=== PATIENT | male | born 1940 | race Caucasian/White ===

== ENCOUNTER → 2017-06-19 | Day surgery (SDC) | payer MEDICARE ==
[2017-06-15 15:36] LABS: BASOPHILS % 0.5 % (0.0-1.0); EOSINOPHILS # (AUTO) 0.4 (0.0-0.4); EOSINOPHILS % 4.6 % (0.0-6.0); HEMATOCRIT 49.2 % (38.2-49.6); HEMOGLOBIN 16.3 g/dL (14.0-18.0); LYMPHOCYTES # (AUTO) 1.7 (1.0-3.2); LYMPHOCYTES % 21.7 % (18.0-39.1); MEAN CORPUSCULAR HEMOGLOBIN 29.5 pg (28-32); MEAN CORPUSCULAR HGB CONC 33.1 g/dL (31-35); MEAN CORPUSCULAR VOLUME 89.1 fL (81-99); MONOCYTES # (AUTO) 0.6 (0.2-0.8); MONOCYTES % 8.1 % (4.4-11.3); NEUTROPHILS % 64.7 % (38.7-80.0); PLATELET COUNT 259 x10e3/uL (140-360); RED BLOOD COUNT 5.52 x10e6/uL (4.3-5.7)
--- NOTE | 2017-06-15 16:16 | Diagnostic Imaging Report ---
PROCEDURE: Frontal and lateral views of the chest. COMPARISON: None. INDICATIONS: PREOP FINDINGS: Lines/tubes: None. Lungs: The lungs are well inflated and clear. There is no evidence of pneumonia or pulmonary edema. Pleura: There is no pleural effusion or pneumothorax. Heart and mediastinum: The heart and the mediastinum are normal. Bones: No acute bony abnormality. Degenerative changes of the thoracic spine. Upper abdomen: No free air under the diaphragm. IMPRESSION: No acute cardiopulmonary disease. Dictated by: Ronald Potter M.D. on 06/15/2017 at 16:17 Electronically approved by: Ronald Potter M.D. on 06/15/2017 at 16:17
[~2017-06-19] MED LIST: A THRU Z SELEC1 EAC2 PO; CEFAZOLIN SOD 1 GM VIAL ONE; CELEBREX100 MG PO; FENTANYL CITRATE/PF 100MCG/2 ML INJ ONE; LIDOCAINE HCL 0.5% LOCAL INJ 50 ML VIAL INJ ONE; LIDOCAINE HCL 2% LOCAL INJ 5 ML SDV VIAL INJ ONE; MIDAZOLAM HCL 2 MG/2 ML VIAL ONE; PROPOFOL IV EMULSION 10 MG/ML 20 ML VIAL ONE; RED YEAST RICE600 M1 PO; VITAMIN B-121000 MC1 PO; VITAMIN C500 M1 PO; VITAMIN D32000 UNIT PO; VITAMIN E400 UNIT PO
--- OUTSIDE RECORDS SUMMARY | 2017-06-19 06:28 | XMS REPORT ---
Author Author [facility] Address Unknown Phone Unavailable Care Team Providers Care Transmission Systems Operator Name Role Phone RUDY ARREAGA Unavailable Unavailable Problems This patient has no known problems. Allergies, Adverse Reactions, Alerts This patient has no known allergies or adverse reactions. Medications This patient has no known medications. Results Test Description Test Time Test Comments Text Results Atomic Results Result Comments CHEST 2 VIEWS [place] [address] Patient Name: SARTHAK SHAIKH MR #: [id number] : 1940 Age/Sex: 76/M Req # : [id number] Adm Physician: Ordered by: MILEY NELSON MD Report #: [id number] Location: OR Room/Bed: Procedure: [id number] DX/CHEST 2 VIEWS Exam Date: 06/15/17 Exam Time: 1505 REPORT STATUS: Signed PROCEDURE: Frontal and lateral views of the chest. COMPARISON: None. INDICATIONS: PREOP FINDINGS : Lines/tubes: None. Lungs: The lungs are well inflated and clear. There is no evidence of pneumonia or pulmonary edema. Pleura: There is no pleural effusion or pneumothorax. Heart and mediastinum: The heart and the mediastinum are normal. Bones: No acute bony abnormality. Degenerative changes of the thoracic spine. Upper abdomen: No free air under the diaphragm. IMPRESSION: No acute cardiopulmonary disease. Dictated by: Ronald Weber M.D. on 06/15/2017 at 16:17 Electronically approved by: Ronald Weber M.D. on 06/15/2017 at 16:17 Dictated By: RONALD WEBER MD [id number] Transcribed By: EFREM on 06/15/17 1617 COPY TO: MILEY NELSON III
--- NOTE | 2017-06-19 11:05 | Operative Report ---
DATE OF PROCEDURE: June 19, 2017 DIE EQUIPMENT OPERATOR: Aristides Infante PA-C The patient was brought to the operating room for induction of anesthesia. Throughout this case, my PA's assistance was necessary for retraction of soft tissue and positioning of the extremity. This allows for efficient and technically successful execution of the operation and is considered medically necessary. PREOPERATIVE DIAGNOSIS: Left carpal tunnel syndrome. POSTOPERATIVE DIAGNOSIS: Left carpal tunnel syndrome. PROCEDURE: Left endoscopic carpal tunnel release. INDICATIONS: The patient is a 76-year-old gentleman who has clinic signs and symptoms consistent with left carpal tunnel syndrome. The findings and options have been discussed. The patient is highly motivated to proceed with definitive intervention. The risks and benefits have been explained. He states he understands and wishes to proceed. DESCRIPTION OF PROCEDURE: The patient was brought to the operating room and given a Doug block. He has a remote family history of malignant hyperthermia. Once the [place] block was set up, his left upper extremity was prepped and draped in a sterile manner. A preoperative time out was performed. An incision was made over the flexion crease of the left wrist. The palmaris longus was retracted to the radial side of the wound. The flexor retinaculum was elevated and incised with a pair of tenotomy scissors. An elevator was used to tease the tenosynovium off of the undersurface of the transverse carpal ligament. Dilators were placed and the hook of the hamate was palpated. The Micro-Aire endoscope was then placed into the carpal tunnel. The undersurface of the transverse carpal ligament could be cleanly visualized without any evidence of soft tissue interposition. The knife was deployed and the ligament was cut from distal to proximal. A full-thickness cut was noted. The proximal retinaculum was incised under direct visualization with a pair of Metzenbaum scissors. The incision was then closed with 2 interrupted nylon stitches. A sterile bandage was applied. The Doug bloc was gradually deflated. He was transported to the recovery room in stable condition. There was no blood loss. All needle and sponge counts were correct. Job#: [id number]
== END | disposition home or self-care (01) ==
LOC: OR 06:26
PROVIDERS: ATTEND Specialist
DX: G56.02 Carpal tunnel syndrome, left upper limb (principal); M06.9 Rheumatoid arthritis, unspecified; J45.909 Unspecified asthma, uncomplicated; Z01.810 Encounter for preprocedural cardiovascular examination; Z01.812 Encounter for preprocedural laboratory examination; Z01.818 Encounter for other preprocedural examination
CPT/HCPCS: 29848; 36415; 71046; 85025; 93005; J0690; J2001 ×2; J2250

== ENCOUNTER 2017-07-19 19:16 | Emergency (ER) | payer MEDICARE ==
[~2017-07-19] VITALS: Ht 167.6 cm; Wt 83.9 kg
[~2017-07-19 19:16] MED LIST changes: -CEFAZOLIN SOD 1 GM VIAL ONE; -FENTANYL CITRATE/PF 100MCG/2 ML INJ ONE; -LIDOCAINE HCL 0.5% LOCAL INJ 50 ML VIAL INJ ONE; -LIDOCAINE HCL 2% LOCAL INJ 5 ML SDV VIAL INJ ONE; -MIDAZOLAM HCL 2 MG/2 ML VIAL ONE; -PROPOFOL IV EMULSION 10 MG/ML 20 ML VIAL ONE
[2017-07-19] MEDS ORDERED: DEXAMETHASONE SOD PHOS 10 MG/1 ML VIAL INJ ONE (20:00)
[2017-07-19 20:05] LABS: BASOPHILS # (AUTO) 0.1 (0.0-0.1); BASOPHILS % 0.4 % (0.0-1.0); EOSINOPHILS # (AUTO) 2.4 (0.0-0.4); EOSINOPHILS % 13.3 % (0.0-6.0); HEMATOCRIT 44.1 % (38.2-49.6); HEMOGLOBIN 15.4 g/dL (14.0-18.0); LYMPHOCYTES # (AUTO) 1.4 (1.0-3.2); LYMPHOCYTES % 7.9 % (18.0-39.1); MEAN CORPUSCULAR HEMOGLOBIN 29.8 pg (28-32); MEAN CORPUSCULAR HGB CONC 34.9 g/dL (31-35); MEAN CORPUSCULAR VOLUME 85.5 fL (81-99); MONOCYTES # (AUTO) 1.3 (0.2-0.8); MONOCYTES % 7.4 % (4.4-11.3); NEUTROPHILS # (AUTO) 12.6 (2.1-6.9); NEUTROPHILS % 70.4 % (38.7-80.0); PLATELET COUNT 287 x10e3/uL (140-360); RED BLOOD COUNT 5.16 x10e6/uL (4.3-5.7); RED CELL DISTRIBUTION WIDTH 12.7 % (11.7-14.4)
[2017-07-19 20:14] LABS: INR 1.19; PROTHROMBIN TIME 14.2 seconds (11.9-14.5)
[2017-07-19 20:15] LABS: PARTIAL THROMBOPLASTIN TIME 31.9 seconds (23.8-35.5)
[2017-07-19 20:21] LABS: ALANINE AMINOTRANSFERASE 18 IU/L (0-55); ALBUMIN 3.6 g/dL (3.5-5.0); ALBUMIN/GLOBULIN RATIO 0.8 (0.8-2.0); ALKALINE PHOSPHATASE 54 IU/L (40-150); ANION GAP 15.1 mmol/L (8-16); BLOOD UREA NITROGEN 9 mg/dL (7-26); BUN/CREATININE RATIO 11 (6-25); CARBON DIOXIDE 23 mmol/L (22-29); CHLORIDE 99 mmol/L (98-107); EST GLOMERULAR FILTRATION RATE > 60 ML/MIN (60-); GLUCOSE 124 mg/dL (74-118); POTASSIUM 4.1 mmol/L (3.5-5.1); SODIUM 133 mmol/L (136-145)
[2017-07-19 21:31] LABS: EOSINOPHILS % (MANUAL) 11 % (0-7); HYPOCHROMASIA SLIGHT; LYMPHOCYTES % (MANUAL) 6 % (19-48); MONOCYTES % (MANUAL) 5 % (3.4-9.0); NEUTROPHILS % (MANUAL) 78 % (40-74); PLATELET ESTIMATE ADEQUATE; RBC MORPHOLOGY COMMENT NORMAL
--- NOTE | 2017-07-19 22:01 | Diagnostic Imaging Report ---
EXAMINATION: CHEST 2 VIEWS INDICATION: Rash on feet, chest pain COMPARISON: 06/15/2017 FINDINGS: TUBES and LINES: None. LUNGS: Lungs are well inflated. Lungs are clear. There is no evidence of pneumonia or pulmonary edema. PLEURA: No pleural effusion or pneumothorax. HEART AND MEDIASTINUM: The cardiomediastinal silhouette is unremarkable. BONES AND SOFT TISSUES: No acute osseous lesion. Soft tissues are unremarkable. UPPER ABDOMEN: No free air under the diaphragm. IMPRESSION: No acute thoracic abnormality. Signed by: Dr. Reid Hutson M.D. on 07/19/2017 9:58 PM
== END 2017-07-19 23:15 | disposition home or self-care (01) ==
LOC: ER 19:16
DX: L51.9 Erythema multiforme, unspecified (principal)
CPT/HCPCS: 36415; 71046; 80053; 85025; 85610; 85651; 85730; 86140; 99284; J1100

== ENCOUNTER 2019-03-17 05:17 | Observation (INO) | payer MEDICARE ==
--- NOTE | 2019-03-10 11:54 | Diagnostic Imaging Report ---
EXAMINATION: CHEST 2 VIEWS INDICATION: Pre-operative COMPARISON: None FINDINGS: LINES/TUBES:None LUNGS:The lungs are well-inflated. No focal consolidation or pulmonary edema. PLEURA:No pleural effusion or pneumothorax. MEDIASTINUM:The cardiomediastinal silhouette appears normal in size and shape. Atherosclerotic calcifications of the thoracic aorta. BONES/SOFT TISSUES:No acute osseous injury. Mild degenerative changes of the visualized spine. ABDOMEN:No free air under the diaphragm. IMPRESSION: No focal pneumonia or pulmonary edema. Signed by: Servando Rinaldi MD on 03/10/2019 11:51 AM
[2019-03-14 09:47] LABS: BASOPHILS # (AUTO) 0.1 (0.0-0.1); BASOPHILS % 0.7 % (0.0-1.0); EOSINOPHILS # (AUTO) 0.8 (0.0-0.4); HEMATOCRIT 44.8 % (38.2-49.6); HEMOGLOBIN 14.7 g/dL (14.0-18.0); LYMPHOCYTES # (AUTO) 1.8 (1.0-3.2); LYMPHOCYTES % 19.5 % (18.0-39.1); MEAN CORPUSCULAR HEMOGLOBIN 29.6 pg (28-32); MEAN CORPUSCULAR HGB CONC 32.8 g/dL (31-35); MEAN CORPUSCULAR VOLUME 90.3 fL (81-99); MONOCYTES # (AUTO) 0.7 (0.2-0.8); MONOCYTES % 8.1 % (4.4-11.3); NEUTROPHILS # (AUTO) 5.7 (2.1-6.9); NEUTROPHILS % 62.4 % (38.7-80.0); PLATELET COUNT 300 x10e3/uL (140-360); RED BLOOD COUNT 4.96 x10e6/uL (4.3-5.7); RED CELL DISTRIBUTION WIDTH 12.7 % (11.7-14.4)
[~2019-03-17] VITALS: Ht 170.2 cm; Wt 89.6 kg
[~2019-03-17 05:17] MED LIST changes: +COQ-10100 MG PO; +[UNRECOGNIZED DRUG - OTHER] PO
[2019-03-17] MEDS ORDERED: DEXAMETHASONE SOD PHOS 10 MG/1 ML VIAL ONE (05:45)
[2019-03-17] MEDS ORDERED: CELECOXIB 200 MG CAP ONE (05:45)
[2019-03-17] MEDS ORDERED: GABAPENTIN 300 MG CAP ONE (05:46)
[2019-03-17] MEDS ORDERED: CEFAZOLIN SOD 1 GM/NS 50ML 100 ML IV ONE (05:46)
[2019-03-17] MEDS ORDERED: VANCOMYCIN HCL 1,000 MG ONE (05:57)
[2019-03-17] MEDS ORDERED: BACITRACIN 50,000 UNIT VIAL ONE (05:58)
[2019-03-17] MEDS ORDERED: TRANEXAMIC ACID 1,000 MG/10 ML ML ONE (05:58)
[2019-03-17] MEDS ORDERED: ROPIVACAINE 246.25 MG, EPINEPHRINE HCL 1:1000 1ML 0.5 MG, CLONIDINE HCL 0.08 MG, KETORO... INJ ONE ×5 (07:30)
[2019-03-17] MEDS ORDERED: SODIUM CHLORIDE 0.9% 500ML 500 ML ONE (07:30)
[2019-03-17] MEDS ORDERED: VANCOMYCIN HCL 500 MG ONE (07:31)
[2019-03-17] MEDS: SODIUM CHLORIDE 0.9% 1000ML 1,000 ML IV SCH ×2 (08:16→18:16)
[2019-03-17] MEDS ORDERED: PROMETHAZINE HCL (IM) 25 MG/ML VIAL INJ PRN (08:30)
[2019-03-17] MEDS ORDERED: HYDROCODONE/APAP 5MG-325MG TAB PO PRN (08:30)
[2019-03-17] MEDS ORDERED: ACETAMINOPHEN 650 MG SUPP PR PRN (08:30)
[2019-03-17] MEDS ORDERED: HYDROCODONE/APAP 7.5MG-325MG 1 EA TAB PO PRN (08:30)
[2019-03-17] MEDS ORDERED: ZOLPIDEM TARTRATE 5 MG TAB PO PRN (08:30)
[2019-03-17] MEDS ORDERED: ONDANSETRON HCL INJ 2MG/ML 2ML 2 MG/ML VIAL IV PRN (08:30)
[2019-03-17] MEDS ORDERED: KETOROLAC TROMETHAMINE 30 MG/ML VIAL IV PRN (08:30)
[2019-03-17] MEDS ORDERED: DIPHENHYDRAMINE HCL INJ 50 MG/ML VIAL IM/IV PRN (08:30)
[2019-03-17] MEDS ORDERED: DOCUSATE SODIUM 100 MG CAP PO PRN (08:30)
[2019-03-17] MEDS: ASPIRIN 325 MG TAB PO SCH ×2 (09:00→17:06)
--- NOTE | 2019-03-17 09:30 | Diagnostic Imaging Report ---
EXAMINATION: PELVIS AP 1-2 VIEWS INDICATION: Postoperative COMPARISON: None FINDINGS: Portable AP radiographs of the left hip demonstrate immediate postoperative findings of left total hip replacement. Alignment appears anatomic. No unexpected fracture. Small amount of subcutaneous soft tissue emphysema. Surgical skin bernabe at the lateral left hip soft tissues. IMPRESSION: Anatomic alignment status post left total hip replacement. Signed by: Servando Rinaldi MD on 03/17/2019 9:27 AM
--- NOTE | 2019-03-17 11:44 | NUR ---
REPORT RECEIVED FROM NANDO FREEMAN IN PACU. PT TO THE FLOOR AT THIS TIME,VITALS WNL. PT DENIES NEEDS AT THIS TIME.
[2019-03-17 12:00] VITALS: BP 111/64
[2019-03-17] MEDS: ACETAMINOPHEN 1000 MG/100 ML IV SCH ×3 (12:11→23:30)
[2019-03-17 12:15] VITALS: BP 119/61
[2019-03-17] MEDS ORDERED: BUPIVACAINE HCL 0.5% INJ 30 ML VIAL INJ ONE (14:14)
--- NOTE | 2019-03-17 14:19 | Operative Report ---
DATE OF PROCEDURE: 03/17/2019 SURGEON: Sin Haas MD PORTFOLIO CONSULTANT: Aristides Infante, certified PA. PREOPERATIVE DIAGNOSIS: Osteoarthritis, left hip. POSTOPERATIVE DIAGNOSIS: Osteoarthritis, left hip. PROCEDURE: Left total hip arthroplasty. INDICATIONS: The patient is a 78-year-old gentleman, who has end-stage arthritis of his left hip. His right hip is not far behind. He has failed conservative management and would like to proceed with a left total hip replacement. The risks and benefits of the procedure have been discussed. He states he understands and wishes to proceed. PROCEDURE IN DETAIL: The patient was brought to the operating room and placed under spinal anesthetic. He received prophylactic antibiotics and tranexamic acid in holding area. He was positioned in the right lateral decubitus position. His left hip was prepped and draped in a sterile manner. A preoperative time-out was performed. A posterior approach was made to the left hip. Care was taken to avoid injury to the sciatic nerve. A Charnley self-retaining retractor was placed. Hemostasis was obtained with electrocautery. The posterior capsule was carefully exposed. The piriformis and the capsule were carefully released. The proximal portion of the quadratus was released. The hip was dislocated. Complete loss of articular cartilage was noted. An oscillating saw was used to resect the femoral head. Acetabular retractors were carefully replaced. The remnant of the labrum was excised. Once again, complete loss of articular cartilage was noted. The socket was then sequentially reamed up to 55 mm. This accomplished bleeding hemispherical bone. A Kanika Biomet OsseoTi socket was impacted into place after thoroughly irrigating the hip. A shower tip pulsatile lavage was used on multiple occasions throughout the case. Additional spray mixture of diluted polymyxin and vancomycin spray was used. The socket was noted to have good fixation. Fixation was augmented with a single 25 mm screw placed into the ilium. A highly cross-linked polyethylene liner with a 36 mm inner diameter was then seated into place. Care was taken to make sure that there was no evidence of soft tissue interposition. An anterior osteophyte was removed with a curved half-inch osteotome. The socket was packed with a moistly-soaked lap sponge. Attention was directed towards the proximal femur. A box cutting osteotome and taper pin reamer were used to establish entry to the femoral canal. The Taperloc broaches were impacted. A size 13 stem had good canal fill and stability. Trial reductions were performed. A standard head and neck were felt to provide appropriate soft tissue balancing, congregation of limb length and stability. The trial implant was removed. The hip was thoroughly irrigated further with a shower tip pulsatile lavage. The Taperloc stem was then impacted into place. A standard neck and 36 mm head was then placed onto the stem. Care was taken to make sure that the stem was clean and dry prior to seating the head and neck. A final reduction was performed. Once again, hip was put through a full arc of motion and noted to have good stability. The posterior capsule was repaired with interrupted #2 Ethibond. The piriformis was reattached using #2 Ethibond. A 500 mg of vancomycin powder were then sprinkled into the deep portion of the wound. A 100 mL premixed pericapsular JESSICA injection was placed into the surrounding soft tissue. The fascia was then closed with interrupted #2 Ethibond. The skin was closed with subcuticular Vicryl and bernabe. A sterile Aquacel bandage was applied. The patient was returned to the supine position and transported to the recovery room in stable condition. Blood loss was approximately 75 mL. At the end of the procedure, all needle and sponge counts were correct. Sin Haas MD DR/HOANG /[id number]
[2019-03-17] MEDS ORDERED: FENTANYL CITRATE/PF 100MCG/2 ML INJ ONE (14:22)
[2019-03-17] MEDS ORDERED: MIDAZOLAM HCL 2 MG/2 ML VIAL ONE (14:22)
[2019-03-17 16:19] VITALS: BP 137/63
[2019-03-17] MEDS: CELECOXIB 200 MG CAP PO SCH (17:06)
[2019-03-17] MEDS: CEFAZOLIN SOD 1 GM/NS 50ML 50 ML IV SCH (17:06)
[2019-03-17] MEDS ORDERED: LIDOCAINE HCL 2% LOCAL INJ 5 ML SDV VIAL INJ ONE (17:38)
[2019-03-17] MEDS ORDERED: PROPOFOL IV EMULSION 10 MG/ML 20 ML VIAL ONE (17:38)
[2019-03-17 20:00] VITALS: BP 115/68
[2019-03-17 20:27] VITALS: BP 115/68
[2019-03-18] MEDS: CEFAZOLIN SOD 1 GM/NS 50ML 50 ML IV SCH ×2 (00:40→09:36)
[2019-03-18 00:41] VITALS: BP 111/57
[2019-03-18 04:00] VITALS: BP 120/68
[2019-03-18] MEDS: SODIUM CHLORIDE 0.9% 1000ML 1,000 ML IV SCH ×2 (04:16→14:16)
[2019-03-18] MEDS: ACETAMINOPHEN 1000 MG/100 ML IV SCH (06:10)
--- NOTE | 2019-03-18 06:26 | NUR ---
Patient refused foot pumps at this time. States it gives him cramps.
[2019-03-18 07:01] LABS: HEMATOCRIT 39.4 % (38.2-49.6); HEMOGLOBIN 12.9 g/dL (14.0-18.0)
--- NOTE | 2019-03-18 07:10 | NUR ---
RECEIVED BEDSIDE REPORT FROM LYDIA ALFRED. PATIENT RESTING AT THIS TIME, NO VISIBLE SIGNS OF DISTRESS NOTED. DENIES PAIN. CALL LIGHT WITHIN REACH.
--- NOTE | 2019-03-18 07:41 | Consultation ---
DATE OF CONSULTATION: 03/18/2019 REASON FOR CONSULTATION: Postop medical management. HISTORY OF PRESENT ILLNESS: The patient is a 78-year-old gentleman with history of osteoarthritis. He is now status post left hip arthroplasty for end-stage osteoarthritis. He is doing well postoperatively with minimal pain. REVIEW OF SYSTEMS: The patient denies any fever, chills, nausea, vomiting, headache, shortness of breath on review of systems. PAST MEDICAL HISTORY: Significant for osteoarthritis. MEDICATIONS: 1. Ibuprofen. 2. Vitamins. SOCIAL HISTORY: He is nonsmoker, nondrinker. Retired, single. FAMILY HISTORY: Noncontributory. ALLERGIES: NONE. PHYSICAL EXAMINATION: VITAL SIGNS: Temperature 96.5, pulse 74, blood pressure 120/68, sats 96% on room air. GENERAL: No apparent distress, lying in bed. NECK: Supple. CARDIOVASCULAR: Regular rate and rhythm. LUNGS: Clear to auscultation bilaterally. ABDOMEN: Good bowel sounds. Soft, nontender. EXTREMITIES: No clubbing or cyanosis. NEUROLOGIC: Nonfocal. ASSESSMENT AND PLAN: 1. Status post left hip arthroplasty. Continue with physical therapy. 2. Left hip pain. Continue with pain control. 3. Anemia. We will check a CBC. 4. Osteoarthritis. We will continue his anti-inflammatories when he is at home. Please see hospital chart for full details. MD TANK Skinner/HOANG /[id number]
[2019-03-18] MEDS ORDERED: ONDANSETRON HCL 4 MG ORAL DISINTEGRATING TAB PO PRN (07:45)
[2019-03-18 07:59] VITALS: BP 122/77
[2019-03-18] MEDS ORDERED: ACETAMINOPHEN 1000 MG/100 ML IV PRN (08:30)
[2019-03-18 08:43] VITALS: BP 122/77
[2019-03-18] MEDS: ASPIRIN 325 MG TAB PO SCH (09:36)
[2019-03-18] MEDS: CELECOXIB 200 MG CAP PO SCH (09:36)
--- NOTE | 2019-03-18 11:36 | NUR ---
Spoke to Mr. Florentino, he has 2 walkers, one 4 wheel, one standard. He provides cell phone number. Spoke to [facility] - they have him down for a visit tomorrow. 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 Call to [facility], they do have 3:1 commodes but they do not take md order/run insurance. Call to therapy supply house - no answer
[2019-03-18 11:47] VITALS: BP 134/67
--- NOTE | 2019-03-18 11:59 | NUR ---
Provided patient with info for [facility] and Therapy supply [place]. COLBY signed.
--- NOTE | 2019-03-18 13:45 | NUR ---
Visit made by the Spiritual Care Department Pastoral Visitor, Calista Correa. PV provided pastoral presence, prayer, hospitality, and supportive listening. Pastoral Visitor informed pt/family of the scope of City Superintendent Services and availability. KAILEE DACOSTA School Manager Spiritual Care Department O: [phone] Pager: [phone] ([phone] number calling from)
== END 2019-03-18 14:59 | disposition home health service (06) ==
LOC: OR 05:17 → PACU V 08:19 → MED/SURG 11:27
PROVIDERS: ADMIT Specialist; ATTEND Specialist
DX: M16.12 Unilateral primary osteoarthritis, left hip (principal); Z01.810 Encounter for preprocedural cardiovascular examination; Z01.812 Encounter for preprocedural laboratory examination; Z01.811 Encounter for preprocedural respiratory examination; D64.9 Anemia, unspecified; E78.5 Hyperlipidemia, unspecified; F41.9 Anxiety disorder, unspecified
CPT/HCPCS: 27130; 36415 ×2; 71046; 72170; 85014; 85018; 85025; 86850; 86900; 86920; 93005; 97116 ×2; 97161; 97530 ×2; C1713 ×2; C1734; G0378 ×2; J0131 ×2; J0171; J0690 ×2; J1100; J1885; J2001; J2250; J2704; J2795; J3010; J3370; J7040

== ENCOUNTER 2019-09-09 07:48 | Observation (INO) | payer MEDICARE, OTHER ==
[2019-09-04 16:23] LABS: BASOPHILS # (AUTO) 0.1 (0.0-0.1); BASOPHILS % 0.7 % (0.0-1.0); EOSINOPHILS # (AUTO) 0.6 (0.0-0.4); EOSINOPHILS % 6.5 % (0.0-6.0); HEMATOCRIT 46.2 % (38.2-49.6); HEMOGLOBIN 14.9 g/dL (14.0-18.0); LYMPHOCYTES % 23.7 % (18.0-39.1); MEAN CORPUSCULAR HEMOGLOBIN 28.7 pg (28-32); MEAN CORPUSCULAR HGB CONC 32.3 g/dL (31-35); MEAN CORPUSCULAR VOLUME 88.8 fL (81-99); MONOCYTES # (AUTO) 0.7 (0.2-0.8); MONOCYTES % 7.9 % (4.4-11.3); NEUTROPHILS # (AUTO) 5.2 (2.1-6.9); NEUTROPHILS % 61.1 % (38.7-80.0); PLATELET COUNT 312 x10e3/uL (140-360); RED CELL DISTRIBUTION WIDTH 13.6 % (11.7-14.4)
[2019-09-04 20:01] LABS: EOSINOPHILS % (MANUAL) 14 % (0-7); LYMPHOCYTES % (MANUAL) 12 % (19-48); METAMYELOCYTES % (MANUAL) 1 % (0-0); MONOCYTES % (MANUAL) 10 % (3.4-9.0); NEUTROPHILS % (MANUAL) 54 % (40-74); RBC MORPHOLOGY COMMENT NORMAL
[2019-09-04 20:02] LABS: PLATELET ESTIMATE ADEQUATE; PLATELET MORPHOLOGY COMMENT NORMAL
[~2019-09-09] VITALS: Ht 166.4 cm; Wt 80.3 kg
[~2019-09-09 07:48] MED LIST changes: +ROPIVACAINE 246.25 MG, EPINEPHRINE HCL 1:1000 1ML 0.5 MG, CLONIDINE HCL 0.08 MG, KETORO... INJ ONE
[2019-09-09] MEDS ORDERED: BUPIVACAINE 7.5MG/ML /DEXTROSE 82.5MG/ML 2 ML AMP INJ ONE (08:07)
[2019-09-09] MEDS ORDERED: CELECOXIB 200 MG CAP ONE (08:12)
[2019-09-09] MEDS ORDERED: DEXAMETHASONE SOD PHOS 10 MG/1 ML VIAL ONE (08:12)
[2019-09-09] MEDS ORDERED: GABAPENTIN 300 MG CAP ONE (08:12)
[2019-09-09] MEDS ORDERED: CEFAZOLIN SOD 1 GM/NS 50ML 50 ML IV ONE ×2 (08:13→08:15)
[2019-09-09] MEDS ORDERED: BACITRACIN 50,000 UNIT VIAL ONE (09:55)
[2019-09-09] MEDS ORDERED: VANCOMYCIN HCL 1,000 MG ONE (09:55)
[2019-09-09] MEDS ORDERED: SODIUM CHLORIDE 0.9% 500ML 500 ML ONE (09:56)
[2019-09-09] MEDS ORDERED: TRANEXAMIC ACID 1,000 MG/10 ML ML ONE (09:56)
[2019-09-09] MEDS ORDERED: ACETAMINOPHEN 1000 MG/100 ML 100 ML IV ONE (10:15)
[2019-09-09] MEDS ORDERED: DOCUSATE SODIUM 100 MG CAP PO PRN (11:30)
[2019-09-09] MEDS ORDERED: KETOROLAC TROMETHAMINE 30 MG/ML VIAL IV PRN (11:30)
[2019-09-09] MEDS ORDERED: DIPHENHYDRAMINE HCL INJ 50 MG/ML VIAL IV PRN (11:30)
[2019-09-09] MEDS ORDERED: ONDANSETRON HCL INJ 2MG/ML 2ML 2 MG/ML VIAL IV PRN (11:30)
[2019-09-09] MEDS ORDERED: HYDROCODONE/APAP 5MG-325MG TAB PO PRN (11:30)
[2019-09-09] MEDS ORDERED: ZOLPIDEM TARTRATE 5 MG TAB PO PRN (11:30)
[2019-09-09] MEDS ORDERED: ACETAMINOPHEN 650 MG SUPP PR PRN (11:30)
[2019-09-09] MEDS ORDERED: HYDROCODONE/APAP 7.5MG-325MG 1 EA TAB PO PRN (11:30)
--- NOTE | 2019-09-09 12:57 | Diagnostic Imaging Report ---
EXAMINATION: PELVIS AP 1-2 VIEWS INDICATION: Postoperative COMPARISON: None FINDINGS: AP radiographs of the pelvis demonstrate immediate postoperative findings of right total hip replacement. Alignment is anatomic. No unexpected fracture. Postoperative subcutaneous soft tissue emphysema. Surgical skin bernabe in place. Anatomic alignment of prior left total hip replacement without evidence of hardware complication. IMPRESSION: Anatomic alignment status post interval right total hip replacement and more remote left total hip replacement. Signed by: Servando Rinaldi MD on 09/09/2019 12:53 PM
[2019-09-09] MEDS ORDERED: PROPOFOL IV EMULSION 10 MG/ML 20 ML VIAL ONE (14:15)
[2019-09-09] MEDS ORDERED: LIDOCAINE HCL 2% LOCAL INJ 5 ML SDV VIAL INJ ONE (14:15)
[2019-09-09] MEDS ORDERED: ETOMIDATE 2 MG/ML 10 ML INJ IV ONE (14:15)
[2019-09-09] MEDS ORDERED: EPHEDRINE SULFATE INJ 50 MG/ML VIAL ONE (14:15)
[2019-09-09] MEDS ORDERED: ONDANSETRON HCL INJ 2MG/ML 2ML 2 MG/ML VIAL ONE (14:15)
[2019-09-09] MEDS ORDERED: MIDAZOLAM HCL 2 MG/2 ML VIAL ONE (14:45)
[2019-09-09] MEDS ORDERED: FENTANYL CITRATE/PF 100MCG/2 ML INJ ONE (14:45)
[2019-09-09 16:00] VITALS: BP 126/70
[2019-09-09 16:12] VITALS: BP 126/70
--- NOTE | 2019-09-09 16:40 | NUR ---
RECEIVED PT FROM PACU. PT INITIAL ASSESSMENT ALREADY COMPLETED BY PACU NURSE. NO COMPLAINTS OF PAIN. DRSG CD&I TO RIGHT HIP ICE INPLACE.
[2019-09-09] MEDS: CELECOXIB 200 MG CAP PO SCH (18:00)
[2019-09-09] MEDS: SODIUM CHLORIDE 0.9% 1000ML 1,000 ML IV SCH (18:00)
[2019-09-09] MEDS: ASPIRIN 325 MG TAB PO SCH (18:00)
[2019-09-09] MEDS: CEFAZOLIN SOD 1 GM/NS 50ML 50 ML IV SCH (18:00)
--- NOTE | 2019-09-09 19:12 | NUR ---
RECEIVED QUICK BRIEF BEDSIDE SHIFT REPORT FROM PREVIOUS NURSE. PATIENT IN BED. CALL LIGHT WITHIN REACH.
[2019-09-09 20:00] VITALS: BP 118/73
--- NOTE | 2019-09-09 20:20 | Operative Report ---
DATE OF PROCEDURE: 09/09/2019 SURGEON: Sin Haas MD BUNDLE TIER AND LABELER: Aristides Infante, certified PA. PREOPERATIVE DIAGNOSIS: Osteoarthritis, right hip. POSTOPERATIVE DIAGNOSIS: Osteoarthritis, right hip. PROCEDURE: Right total hip arthroplasty. INDICATIONS: The patient is a 78-year-old gentleman, who has end-stage arthritis of his right hip. He has failed conservative management and would like to proceed with a right total hip replacement. The risks and benefits of the procedure have been thoroughly explained. He is familiar. He is status post a left total hip replacement. All of his questions have been answered. He states he understands and wishes to proceed. DESCRIPTION OF PROCEDURE: The patient was brought to the operating room and given a spinal anesthetic. He received prophylactic antibiotics and tranexamic acid in the holding area. He was positioned in the left lateral decubitus position. His right hip was prepped and draped in a sterile manner. A preoperative time-out was performed. The posterior approach was made to the right hip. Hemostasis was obtained with electrocautery. A self-retaining Charnley retractor was placed. The posterior capsule was carefully exposed. There was marked contracture and a posterior portion of the short external rotators were released. Further hemostasis was obtained with electrocautery. The capsule was preserved for later repair. The hip was dislocated and an oscillating saw was used to resect the femoral head. Complete loss of articular cartilage was noted. Acetabular retractors were placed. The true floor of the acetabulum was established with a 46 mm reamer. The socket was then sequentially reamed up to 55 mm. This accomplished bleeding hemispherical cancellous bone. The wound was thoroughly irrigated with a shower tip pulsatile lavage. A Kanika Biomet 56 mm outer diameter OsseoTi socket was then impacted into place. Fixation was augmented with a single 25 mm cancellous screw. Excellent bone fixation was felt to be obtained. The wound was further irrigated and then a highly cross-linked polyethylene liner was seated into place. Care was taken to make sure that there was no evidence of soft tissue interposition. The socket was then packed with a moistly soaked lap sponge. Attention was directed towards the proximal femur. A box cutting osteotome and taper pin reamer were used to establish entry to the femoral canal. The Taperloc broaches were impacted. A size 13 stem had good canal fill and rotational stability for trial reduction. A standard 36 mm head appeared to provide appropriate soft tissue balancing, yazidism of limb length and excellent stability to a full arc of motion. The trial implants were removed. The femoral canal was thoroughly irrigated. A 100 mL premixed pericapsular JESSICA injection was placed into the surrounding soft tissue. The stem was seated into the femoral canal. A standard 36 mm ceramic head was then placed onto a clean and dry stem. A final reduction was performed. Once again, the hip was put through a full arc of motion and noted to have excellent stability. The posterior capsule was carefully repaired with interrupted #2 Ethibond. The piriformis was repaired with #2 Ethibond. A 500 mg of vancomycin powder was then sprinkled into the deep wound. The fascia was closed with interrupted #2 Ethibond. The skin was closed with subcuticular Vicryl and bernabe. A sterile bandage was applied. He was returned to the supine position and transported to the recovery room in stable condition. Estimated blood loss was 50 mL. At the end of the procedure, all needle and sponge counts were correct. Sin Haas MD DR/HOANG /[id number]
[2019-09-09 20:30] VITALS: BP 118/73
[2019-09-10] VITALS: BP 117/68
[2019-09-10] MEDS: CEFAZOLIN SOD 1 GM/NS 50ML 50 ML IV SCH ×2 (02:00→10:06)
[2019-09-10 04:00] VITALS: BP 117/65
[2019-09-10] MEDS ORDERED: ACETAMINOPHEN 1000 MG/100 ML IV PRN ×2 (05:21→11:30)
[2019-09-10 05:37] LABS: HEMATOCRIT 40.1 % (38.2-49.6); HEMOGLOBIN 12.9 g/dL (14.0-18.0)
[2019-09-10] MEDS: SODIUM CHLORIDE 0.9% 1000ML 1,000 ML IV SCH (05:58)
--- NOTE | 2019-09-10 07:00 | NUR ---
RECEIVED PATIENT AWAKE RESTING IN BED NO S/S OF DISTRESS. BED LOW, WHEELS LOCKED, SIDE RAILS X2. CALL LIGHT IN REACH WILL CONTINUE TO MONITOR.
--- NOTE | 2019-09-10 07:15 | NUR ---
GAVE BEDSIDE SHIFT REPORT TO ONCOMING NURSE. HOURLY ROUNDING PERFORMED. PATIENT IN BED. CALL LIGHT WITHIN REACH.
--- NOTE | 2019-09-10 08:04 | NUR ---
DR QUINTERO OFFICE PREARRANGED FOLLOWING DISCHARGE PLAN OF:HOME [address] [facility], [facility] WITH [facility] CONFIRMED WITH ANN [phone] DECLINED DME STATES HAS ALL OF IT FROM PRIOR SURGERY, NOTIFIED THERAPY SUPPLY HOUSE BOWMAN SIGNED AND ON CHART COPY LEFT WITH PATIENT GAVE CARD FOR QUESTIONS AND OR CONCERNS.
[2019-09-10] MEDS: CELECOXIB 200 MG CAP PO SCH (08:16)
[2019-09-10] MEDS: ASPIRIN 325 MG TAB PO SCH (08:16)
--- NOTE | 2019-09-10 08:28 | Consultation ---
DATE OF CONSULTATION: REASON FOR CONSULTATION: Postop medical management. HISTORY OF PRESENT ILLNESS: The patient is a 78-year-old gentleman who is status post right hip arthroplasty. He is complaining of significant pain in the right hip area, but denies any chest pain, fever, chills, nausea, vomiting, headache, or shortness of breath. PAST MEDICAL HISTORY: Osteoarthritis. MEDICATIONS: See MAR. ALLERGIES: NONE. SOCIAL HISTORY: He is single, retired, nonsmoker, nondrinker. FAMILY HISTORY: Noncontributory. PHYSICAL EXAMINATION: VITAL SIGNS: Temperature 98.6, pulse 74, blood pressure 126/74, saturation is 98% on room air. GENERAL: No apparent distress, lying in bed. NECK: Supple. CARDIOVASCULAR: Regular rate and rhythm. LUNGS: Clear to auscultation bilaterally. ABDOMEN: Good bowel sounds. Soft, nontender. EXTREMITIES: No clubbing or cyanosis. NEUROLOGIC: Nonfocal. ASSESSMENT AND PLAN: 1. Status post right hip arthroplasty. Continue with postoperative care and try to help postoperative pain control. 2. Anemia. Check a CBC. Please see hospital chart for full details. MD TANK Skinner/HOANG /[id number]
[2019-09-10 08:34] VITALS: BP 116/68
[2019-09-10] MEDS ORDERED: ASPIRIN CHEW81 MG PO (08:54)
[2019-09-10] MEDS ORDERED: ONDANSETRON HCL 4 MG ORAL DISINTEGRATING TAB PO PRN ×2 (10:30→12:45)
[2019-09-10 10:41] VITALS: BP 116/68
[2019-09-10 12:11] VITALS: BP 109/68
--- NOTE | 2019-09-10 13:30 | NUR ---
REMOVED PATIENTS IV. CATHETER TIP INTACT AND PRESSURE DRESSING APPLIED.
--- NOTE | 2019-09-10 13:59 | NUR ---
PATIENT DISCHARGED FROM FACILITY. PATIENT GATHERED ALL PERSONAL BELONGINGS, DISCHARGE INSTRUCTIONS, AND FOLLOW UP INFORMATION. LEFT UNIT IN WHEELCHAIR AND WENT HOME VIA PRIVATE AUTO.
--- OUTSIDE RECORDS SUMMARY | 2019-09-12 19:18 | XMS REPORT | Continuity of Care Document ---
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 Allergies, Adverse Reactions, Alerts This patient has no known allergies or adverse reactions. Medications Ordered Medication Name Filled Medication Name Start Date Stop Da te Current Medication? Ordering Clinician Indication Dosage Frequency Signature (SIG) Comments Components Source Ascorbic Acid (Vitamin C) 500 Mg Tablet Ascorbic Acid (Vitam in C) 500 Mg Tablet Yes 500 [facility] Cholecalciferol (Vitamin D3) (Vitamin D3) 2,000 Unit C apsule Cholecalciferol (Vitamin D3) (Vitamin D3) 2,000 Unit Capsule Yes 1999 [facility] Cyanocobalamin (Vitamin B-12) (Vitamin B-12) 1,000 Mcg Tablet.er Cyanocobalamin (Vitamin B-12) (Vitamin B-12) 1,000 Mcg Tablet.er Yes [facility] Multivitamin W-Minerals/Lutein (A Thru Z Select Tablet ) 1 Each Tablet Multivitamin W-Minerals/Lutein (A Thru Z Select Tablet) 1 Each Tablet Yes 1 [facility] Red Yeast Rice 600 Mg Tablet Red Yeast Rice 600 Mg Tablet Yes [facility] Ubidecarenone (Coq-10) 100 Mg Capsule Ubidecarenone (Coq-10) 100 Mg Capsule Yes 200 [facility] Vitamin E Acetate (Vitamin E) 400 Unit Capsule Vitamin E Acetate (Vitamin E) 400 Unit Capsule Yes 400 [facility] Propoxy-N Apap , Mg Oral Propoxy-N Apap , Mg Oral 00:00:00 No [facility] Celecoxib (Celebrex*) 100 Mg Capsule, Mg Oral Celecox ib (Celebrex*) 100 Mg Capsule, Mg Oral 2019-03-10 00:00:00 No Robert Hayes ded [facility] Procedures Procedure Date / Time Performed Performing Clinician Vipin fortune Total replacement of left hip joint 2019-03-17 00:00:00 RUDY ARRAEGA [facility] X-ray of chest, two views 2019-03-10 00:00:00 RUDY ARREAGA I [facility] Encounters Start Date/Time End Date/Time Encounter Type Admission Type [facility] Care Department Encounter ID Source 2019-03-17 08:19:00 2019-03-18 14:59:00 Discharged Inpatient (obs) 3 RUDY ARREAGA [facility] [id number] [facility] 2017-07-19 19:16:00 2017-07-19 23:15:00 Departed Emergency Room 1 DYLAN CORONA [facility] [id number] [facility] 2017-06-19 06:26:00 2017-06-19 06:26:00 Registered Surgical Day Car tong DOUGLAS RUDY ARREAGA [facility] [id number] [facility] Results Test Description Test Time Test Comments Results Result Comments Source PELVIS AP 1-2 VIEWS 2019-09-09 12:52:00 [place] [address] Patient Name: SARTHAK SHAIKH MR #: [id number] : 1940 Age/Sex: 78/M Req #: [id number] Adm Physician: RUDY ARREAGA MD Ordered by: RUDY ARREAGA MD Report #: [id number] Location: MED/SURG Room/Bed: [facility] Procedure: [id number] DX/PELVIS AP 1-2 VIEWS Exam Date: 09/09/19 Exam Time: 1146 REPORT STATUS: Signed EXAMINATION: PELVIS AP 1-2 VIEWS INDICATION: Postoperative COMPARISON: None FINDINGS: AP radiographs of the pelvis demonstrate immediate postoperative findings of right total hip replacement. Alignment is anatomic. No unexpected fracture. Postoperative subcutaneous soft tissue emphysema. Surgical skin bernabe in place. Anatomic alignment of prior left total hip replacement without evidence of hardware complication. IMPRESSION: Anatomic alignment status post interval right total hip replacement and more remote left total hip replacement. Signed by: Timoteo Rinaldi MD on 09/09/2019 12:53 PM Dictated By: TIMOTEO RINALDI MD 1253 Transcribed By: DARREN on 09/09/19 1253 COPY TO: RUDY ARREAGA MD Hemoglobin 2019-03-18 07:01:00 Test Item Hemoglobin (test code = 40141-0) 12.9 14.0-18.0 L [facility] 07:01:00* Test Item Value Reference Range Interpretation Comments Hematocrit (test code = 4544-3) 39.4 38.2-49.6 [facility]-2 [id number] 09:25:00 [place] [address] Patient Name: SARTHAK SHAIKH MR #: [id number] : 1940 Age/Sex: 78/M Req #: [id number] Adm Physician: RUDY ARREAGA MD Ordered by: RUDY ARREAGA MD Report #: [id number] Location: PACU V Room/Bed: V PACU-1 Procedure: [id number] DX/PELVIS AP 1-2 VIEWS Exam Date: 03/17/19 Exam Time : 0851 REPORT STATUS: Signed EXA MINATION: PELVIS AP 1-2 VIEWS INDICATION: Postoperative COMPARISO N: None FINDINGS: Portable AP radiographs of the left hip demonst rate immediate postoperative findings of left total hip replacement. Alignment appears anatomic. No unexpected fracture. Small amount of subcutaneous soft t issue emphysema. Surgical skin bernabe at the lateral left hip soft tissues. IMPRESSION: Anatomic alignment status post left total hip replacement. Signed by: Timoteo Rinaldi MD on 03/17/2019 9:27 AM Dictated By: TIMOTEO RINALDI MD 6 Transcribed By: ALFA LOMAX on 03/17/19926 COPY TO: RUDY ARREAGA MD White Blood Nyooz0315-83-67 10:41:00* Test Item Value Reference Range Interpretation Comments White Blood Count (test code = 6690-2) 9.18 4.8-10.8 [facility] Ektgm2837-67-01 10:41:00* Test Item Value Reference Range Interpretation Comments Red Blood Count (test code = 789-8) 4.96 4.3-5.7 [facility] Corpuscular Iqihee7951-96-58 10:41:00* Test Item Value Reference Range Interpretation Comments Mean Corpuscular Volume (test code = 787-2) 90.3 81-99 [facility] Corpuscular Hyuwrhqeee1648-66-50 10:41:00* Test Item Value Reference Range Interpretation Comments Mean Corpuscular Hemoglobin (test code = 785-6) 29.6 28-32 [facility] Corpuscular Hemoglobin Concent 2019-03-14 10:41:00* Test Item Value Reference Range Interpretation Comments Mean Corpuscular Hemoglobin Concent (test code = 786-4) 32.8 31-35 [facility] Cell Distribution Cakzm8532-73-95 10:41:00* Test Item Value Reference Range Interpretation Comments Red Cell Distribution Width (test code = 90201-2) 12.7 11.7 -14.4 [facility]atelet Pzcni4881-93-08 10:41:00* Test Item Value Reference Range Interpretation Comments Platelet Count (test code = 777-3) 300 140-360 [facility]utrophils (%) (Auto)2019-03-14 10:41:00 * Test Item Value Reference Range Interpretation Comments Neutrophils (%) (Auto) (test code = 71650-4) 62.4 38.7-80.0 [facility]ymphocytes (%) (Auto)2019-03-14 10:41:00 * Test Item Value Reference Range Interpretation Comments Lymphocytes (%) (Auto) (test code = 736-9) 19.5 18.0-39.1 [facility]ocytes (%) (Auto)2019-03-14 10:41:00* Test Item Value Reference Range Interpretation Comments Monocytes (%) (Auto) (test code = 5905-5) 8.1 4.4-11.3 [facility]osinophils (%) (Auto)2019-03-14 10:41:00 * Test Item Value Reference Range Interpretation Comments Eosinophils (%) (Auto) (test code = 713-8) 9.0 0.0-6.0 H [facility] (%) (Auto)2019-03-14 10:41:00* Test Item Value Reference Range Interpretation Comments Basophils (%) (Auto) (test code = 706-2) 0.7 0.0-1.0 [facility] GRANULOCYTES %2019-03-14 10:41:00* Test Item Value Reference Range Interpretation Comments IM GRANULOCYTES % (test code = IM GRANULOCYTES %) 0.3 0.0- 1.0 [facility]Neutrophils # (Auto)2019-03-14 10:41:00* Test Item Value Reference Range Interpretation Comments Neutrophils # (Auto) (test code = 751-8) 5.7 2.1-6.9 [facility]Lymphocytes # (Auto)2019-03-14 10:41:00* Test Item Value Reference Range Interpretation Comments Lymphocytes # (Auto) (test code = 61270-0) 1.8 1.0-3.2 [facility] # (Auto)2019-03-14 10:41:00* Test Item Value Reference Range Interpretation Comments Monocytes # (Auto) (test code = 742-7) 0.7 0.2-0.8 [facility]osinophils # (Auto)2019-03-14 10:41:00* Test Item Value Reference Range Interpretation Comments Eosinophils # (Auto) (test code = 711-2) 0.8 0.0-0.4 H [facility]Basophils # (Auto)2019-03-14 10:41:00* Test Item Value Reference Range Interpretation Comments Basophils # (Auto) (test code = 704-7) 0.1 0.0-0.1 [facility]Absolute Immature Granulocyte (auto 2019-03-14 10:41:00* Test Item Value Reference Range Interpretation Comments Absolute Immature Granulocyte (auto (vicente t code = Absolute Immature Granulocyte (auto) 0.03 0-0.1 [facility]CHEST 2 DYTQV6865-84-30 11:50:00 [place] [address] Patient Name: SARTHAK SHAIKH MR #: [id number] : 1940 Age/Sex: 78/M Req #: [id number] Adm Physician: Ordered by: RUDY ARREAGA MD Report #: [id number] Location: OR Room/Bed: Procedure: [id number] D X/CHEST 2 VIEWS Exam Date: 03/10/19 Exam Time: 1120 REPORT STATUS: Signed EXAMINATIO N: CHEST 2 VIEWS INDICATION: Pre-operative COMPARISON: None FINDINGS: LINES/TUBES:None LUNGS:The lungs are well-inflated. No focal consolidation or pulmonary edema. PLEURA:No pleural effusion or pneum othorax. MEDIASTINUM:The cardiomediastinal silhouette appears normal in siz e and shape. Atherosclerotic calcifications of the thoracic aorta. BONES/ SOFT TISSUES:No acute osseous injury. Mild degenerative changes of the visuali zed spine. ABDOMEN:No free air under the diaphragm. IMPRESSION: No focal pneumonia or pulmonary edema. Signed by: Timoteo Rinaldi MD on 03/10/19 11:51 AM Dictated By: TIMOTEO RINALDI MD 115 Transcribed By: DARREN on 03/10/19 1151 COPY TO: RUDY ARREAGA MD CHEST 2 DJSKC9590-86-74 21:58:00 [place] [address] Patient Name: SARTHAK SHAIKH MR #: [id number] : 1940 Age/Sex: 76/M Req #: [id number] Adm Physician: Ordered by: PETRONA JACKSON INSURANCE COORDINATOR Report #: [id number] Location: ER Room/Bed: Procedure: [id number] DX/CHEST 2 VIEWS Exam Date: 07/19/17 Exam Time: 2119 REPORT STATUS: Signed EXAMINATION: CHEST 2 VIEWS INDICATION: Rash on feet, chest pain COMPARISON: 06/15/2017 FINDINGS: TUBES and LINES: None. LUNGS: Lungs are well inflated. Lungs are clear. There is no evidence of pneumonia or pulmonary edema. PLEURA: No pleural effusion or pneumot horax. HEART AND MEDIASTINUM: The cardiomediastinal silhouette is unremark able. BONES AND SOFT TISSUES: No acute osseous lesion. Soft tissues a re unremarkable. UPPER ABDOMEN: No free air under the diaphragm. IMPRESSION: No acute thoracic abnormality. Signed by: Dr. Reid morales M.D. on 07/19/2017 9:58 PM Dictated By: REID POZO MD Electro nically Signed By: REID POZO MD on 07/19/172157 Transcribed By: DAVID JUDGE on 07/19/172157 COPY TO: PETRONA JACKSON NP Differential Total Cells Agjchcd2852-63-28 21:31:00* Test Item Value Reference Range Interpretation Comments Differential Total Cells Counted (test code = Differmichael tial Total Cells Counted) 100 [facility] % (Manual)2017-07-19 21:31:00 * Test Item Value Reference Range Interpretation Comments Neutrophils % (Manual) (test code = 26725-6) 78 40-74 H [facility] HendersonLymphocytes % (Manual)2017-07-19 21:31:00 * Test Item Value Reference Range Interpretation Comments Lymphocytes % (Manual) (test code = 737-7) 6 19-48 L [facility] HendersonMonocytes % (Manual)2017-07-19 21:31:00* Test Item Value Reference Range Interpretation Comments Monocytes % (Manual) (test code = 744-3) 5 3.4-9.0 [facility]Eosinophils % (Manual)2017-07-19 21:31:00 * Test Item Value Reference Range Interpretation Comments Eosinophils % (Manual) (test code = 714-6) 11 0-7 H [facility] HendersonPlatelet Pfxrbsbm8254-80-85 21:31:00* Test Item Value Reference Range Interpretation Comments Platelet Estimate (test code = 18883-9) ADEQUATE [facility] HendersonHypochromasia2018-06-07 21:31:00* Test Item Value Reference Range Interpretation Comments Hypochromasia (test code = 728-6) SLIGHT [facility] HendersonRed Cell Morphology Tbjjhhr1932-76-74 21:31:00* Test Item Value Reference Range Interpretation Comments Red Cell Morphology Comment (test code = 6742-1) NORMAL [facility] HendersonErythrocyte Sedimentation Qqoy8518-33-76 20:43:00* Test Item Value Reference Range Interpretation Comments Erythrocyte Sedimentation Rate (test code = 4537-7) 51 0- 13 [facility] Muusn5272-17-36 20:23:00* Test Item Value Reference Range Interpretation Comments Sodium Level (test code = 2951-2) 133 136-145 L [facility] HendersonPotassium Zxzot3560-09-50 20:23:00* Test Item Value Reference Range Interpretation Comments Potassium Level (test code = 2823-3) 4.1 3.5-5.1 [facility] HendersonChloride Sfmup2740-57-21 20:23:00* Test Item Value Reference Range Interpretation Comments Chloride Level (test code = 2075-0) 99 98-107 [facility] HendersonCarbon Dioxide Ekxqa3951-78-26 20:23:00* Test Item Value Reference Range Interpretation Comments Carbon Dioxide Level (test code = 2028-9) 23 22-29 [facility] HendersonAnion Jpf4864-75-95 20:23:00* Test Item Value Reference Range Interpretation Comments Anion Gap (test code = 43199-2) 15.1 8-16 [facility] HendersonBlood Urea Dzmnehax7340-27-38 20:23:00* Test Item Value Reference Range Interpretation Comments Blood Urea Nitrogen (test code = 3094-0) 9 7-26 [facility] HendersonCreatinine2018-06-07 20:23:00* Test Item Value Reference Range Interpretation Comments Creatinine (test code = 2160-0) 0.80 0.72-1.25 [facility] HendersonBUN/Creatinine Cawox0478-04-79 20:23:00* Test Item Value Reference Range Interpretation Comments BUN/Creatinine Ratio (test code = 3097-3) 11 6-25 [facility] HendersonEstimat Glomerular Filtration Rate 2017-07-19 20:23:00* Test Item Value Reference Range Interpretation Comments Estimat Glomerular Filtration Rate (test code = 55952-8) 60- >60 Ranges were taken from the National Kidney Disease Education Program and the formerly [facility] Kidney Foundation literature.Reference ranges:60 or greater: Bkwenj24-05 ( for 3 consecutive months): Chronic kidney disease 15 or less: Kidney failureUT Health HendersonGlucose Xsypl8424-82-67 20:23:00* Test Item Value Reference Range Interpretation Comments Glucose Level (test code = ZDJ7355) 124 74-118 H [facility] HendersonCalcium Rhucp1770-89-02 20:23:00* Test Item Value Reference Range Interpretation Comments Calcium Level (test code = 99632-0) 10.0 8.4-10.2 [facility] HendersonTotal Vasookaxv4454-11-07 20:23:00* Test Item Value Reference Range Interpretation Comments Total Bilirubin (test code = 1975-2) 1.2 0.2-1.2 [facility] HendersonAspartate Amino Transf (AST/SGOT) 2017-07-19 20:23:00* Test Item Value Reference Range Interpretation Comments Aspartate Amino Transf (AST/SGOT) (test code = Aspartate Amino Transf (AST/SGOT)) 16 5-34 [facility] HendersonAlanine Aminotransferase (ALT/SGPT) 2017-07-19 20:23:00* Test Item Value Reference Range Interpretation Comments Alanine Aminotransferase (ALT/SGPT) (test code = 1742-6) 18 0-55 [facility] HendersonTotal Hzwsgpp7932-91-17 20:23:00* Test Item Value Reference Range Interpretation Comments Total Protein (test code = 2885-2) 8.0 6.5-8.1 [facility] HendersonAlbumin2018-06-07 20:23:00* Test Item Value Reference Range Interpretation Comments Albumin (test code = 1751-7) 3.6 3.5-5.0 [facility] HendersonGlobulin2018-06-07 20:23:00* Test Item Value Reference Range Interpretation Comments Globulin (test code = 90778-4) 4.4 2.3-3.5 H [facility] HendersonAlbumin/Globulin Kcrfb7695-34-70 20:23:00 * Test Item Value Reference Range Interpretation Comments Albumin/Globulin Ratio (test code = 1759-0) 0.8 0.8-2.0 [facility] HendersonAlkaline Fbaojvykpkj2694-39-61 20:23:00* Test Item Value Reference Range Interpretation Comments Alkaline Phosphatase (test code = 6768-6) 54 40-150 [facility] HendersonProthrombin Skfi9050-25-55 20:18:00* Test Item Value Reference Range Interpretation Comments Prothrombin Time (test code = 5902-2) 14.2 11.9-14.5 [facility] HendersonProthromb Time International Ratio 2017-07-19 20:18:00* Test Item Value Reference Range Interpretation Comments Prothromb Time International Ratio (test code = 6301-6) 1.19 Oral Anticoagulant Therapy INR Values:1. Low Intensity Therapy 1.5 - 2.02 . Moderate Intensity Therapy 2.0 - 3.03. High Intensity Therapy(1) 2.5 - 3. 54. High Intensity Therapy(2) 3.0 - 4.05. Panic Value INR > 5.0 [facility] HendersonActivated Partial Thromboplast Time 2017-07-19 20:18:00* Test Item Value Reference Range Interpretation Comments Activated Partial Thromboplast Time (test code = 31092-7) 31.9 23.8-35.5 [facility] HendersonWhite Blood Uwidc2748-98-73 20:06:00* Test Item Value Reference Range Interpretation Comments White Blood Count (test code = 6690-2) 17.83 4.8-10.8 H [facility] HendersonRed Blood Queoj4565-49-17 20:06:00* Test Item Value Reference Range Interpretation Comments Red Blood Count (test code = 789-8) 5.16 4.3-5.7 [facility] HendersonHemoglobin2018-06-07 20:06:00* Test Item Value Reference Range Interpretation Comments Hemoglobin (test code = 84423-3) 15.4 14.0-18.0 [facility] HendersonHematocrit2018-06-07 20:06:00* Test Item Value Reference Range Interpretation Comments Hematocrit (test code = 4544-3) 44.1 38.2-49.6 [facility] HendersonMean Corpuscular Tizvcg9893-72-03 20:06:00* Test Item Value Reference Range Interpretation Comments Mean Corpuscular Volume (test code = 787-2) 85.5 81-99 [facility] HendersonMean Corpuscular Dbrfixvqxo0601-80-16 20:06:00* Test Item Value Reference Range Interpretation Comments Mean Corpuscular Hemoglobin (test code = 785-6) 29.8 28-32 [facility] HendersonMean Corpuscular Hemoglobin Concent 2017-07-19 20:06:00* Test Item Value Reference Range Interpretation Comments Mean Corpuscular Hemoglobin Concent (test code = 786-4) 34.9 31-35 [facility] HendersonRed Cell Distribution Olfrs7732-61-85 20:06:00* Test Item Value Reference Range Interpretation Comments Red Cell Distribution Width (test code = 77711-2) 12.7 11.7 -14.4 [facility] HendersonPlatelet Kwjok2814-37-58 20:06:00* Test Item Value Reference Range Interpretation Comments Platelet Count (test code = 777-3) 287 140-360 [facility] HendersonNeutrophils (%) (Auto)2017-07-19 20:06:00 * Test Item Value Reference Range Interpretation Comments Neutrophils (%) (Auto) (test code = 39952-6) 70.4 38.7-80.0 [facility] HendersonLymphocytes (%) (Auto)2017-07-19 20:06:00 * Test Item Value Reference Range Interpretation Comments Lymphocytes (%) (Auto) (test code = 736-9) 7.9 18.0-39.1 L [facility] HendersonMonocytes (%) (Auto)2017-07-19 20:06:00* Test Item Value Reference Range Interpretation Comments Monocytes (%) (Auto) (test code = 5905-5) 7.4 4.4-11.3 [facility]Eosinophils (%) (Auto)2017-07-19 20:06:00 * Test Item Value Reference Range Interpretation Comments Eosinophils (%) (Auto) (test code = 713-8) 13.3 0.0-6.0 H [facility] HendersonBasophils (%) (Auto)2017-07-19 20:06:00* Test Item Value Reference Range Interpretation Comments Basophils (%) (Auto) (test code = 706-2) 0.4 0.0-1.0 [facility] HendersonIM GRANULOCYTES %2017-07-19 20:06:00* Test Item Value Reference Range Interpretation Comments IM GRANULOCYTES % (test code = IM GRANULOCYTES %) 0.6 0.0- 1.0 [facility] HendersonNeutrophils # (Auto)2017-07-19 20:06:00* Test Item Value Reference Range Interpretation Comments Neutrophils # (Auto) (test code = 751-8) 12.6 2.1-6.9 H [facility] HendersonLymphocytes # (Auto)2017-07-19 20:06:00* Test Item Value Reference Range Interpretation Comments Lymphocytes # (Auto) (test code = 81651-7) 1.4 1.0-3.2 [facility] HendersonMonocytes # (Auto)2017-07-19 20:06:00* Test Item Value Reference Range Interpretation Comments Monocytes # (Auto) (test code = 742-7) 1.3 0.2-0.8 H [facility] HendersonEosinophils # (Auto)2017-07-19 20:06:00* Test Item Value Reference Range Interpretation Comments Eosinophils # (Auto) (test code = 711-2) 2.4 0.0-0.4 H [facility] HendersonBasophils # (Auto)2017-07-19 20:06:00* Test Item Value Reference Range Interpretation Comments Basophils # (Auto) (test code = 704-7) 0.1 0.0-0.1 [facility] HendersonAbsolute Immature Granulocyte (auto 2017-07-19 20:06:00* Test Item Value Reference Range Interpretation Comments Absolute Immature Granulocyte (auto (vicente t code = Absolute Immature Granulocyte (auto) 0.10 0-0.1 [facility]CHE[facility] V[facility] [address] [place] [address] Patient Name: SARTHAK SHAIKH MR #: [id number] : 1940 Age/Sex: 76/M Req #: [id number] Adm Physician: Ordered by: MILEY NELSON MD Report #: [id number] Location: OR Room/Bed: Procedure: [id number] DX/CHEST 2 VIEWS Exam Date: 06/15/17 Exam Time: 1505 REPORT STATUS: Signed PROCEDURE: Frontal and lateral views of the chest. COMPARISON: None. INDICATIONS: PREOP FINDINGS: Lines/tubes: None. Lungs: The lungs are well inflated and clear. There is no evidence of pneumonia or pulmonary edema. Pleura: There is no pleural effusion or pneumothorax. Heart and mediastinum: The heart and the mediastinum are normal. B ones: No acute bony abnormality. Degenerative changes of the thoracic spine. Upper abdomen: No free air under the diaphragm. IMPRESSION: No acute cardiopulmonary disease. Dictated by: Ronald Weber M.D. on at 16:17 Electronically approved by: Ronald Weber M.D. on 05/2017 at 16:17 Dictated By: RONALD WEBER MD 1617 Transcribed By: EFREM on 06/15/171616 COPY TO: MILEY NELSON III
== END 2019-09-10 13:59 | disposition home health service (06) ==
LOC: OR 07:48 → PACU V 11:25 → MED/SURG 17:17
PROVIDERS: ADMIT Specialist; ATTEND Specialist
DX: M16.0 Bilateral primary osteoarthritis of hip (principal); Z96.642 Presence of left artificial hip joint; Z11.59 Encounter for screening for other viral diseases; Z01.812 Encounter for preprocedural laboratory examination; G89.18 Other acute postprocedural pain; D64.9 Anemia, unspecified
CPT/HCPCS: 27130; C1776; 36415; 72170; 85014; 85018; 85025; 86850; 86900; 86920; 93005; C1713; C1734; G0378; J0171; J0690; J1100; J1885; J2001; J2250; J2405; J2795; J3010; J3370; J7030; J7040; U0002

== ENCOUNTER → 2021-09-23 | Day surgery (SDC) | payer MEDICARE ==
[2021-09-21 16:12] LABS: BASOPHILS # (AUTO) 0.1 (0.0-0.1); BASOPHILS % 0.9 % (0.0-1.0); EOSINOPHILS % 10.1 % (0.0-6.0); HEMATOCRIT 46.8 % (38.2-49.6); LYMPHOCYTES % 20.8 % (18.0-39.1); MEAN CORPUSCULAR HEMOGLOBIN 30.1 pg (28-32); MEAN CORPUSCULAR HGB CONC 34.2 g/dL (31-35); MONOCYTES # (AUTO) 0.7 (0.2-0.8); MONOCYTES % 7.6 % (4.4-11.3); NEUTROPHILS # (AUTO) 5.7 (2.1-6.9); NEUTROPHILS % 60.2 % (38.7-80.0); PLATELET COUNT 270 x10e3/uL (140-360); RED BLOOD COUNT 5.32 x10e6/uL (4.3-5.7); RED CELL DISTRIBUTION WIDTH 13.3 % (11.7-14.4)
[2021-09-21 16:25] LABS: ANION GAP 13.4 mmol/L (8-16); CALCIUM 9.3 mg/dL (8.4-10.2); CREATININE, SERUM 0.8 mg/dL (0.72-1.25); POTASSIUM 4.4 mmol/L (3.5-5.1)
[~2021-09-23] MED LIST changes: +ASPIRIN CHEW81 MG PO; +BUPIVACAINE 0.25% 30ML SDV ONE; +DEXAMETHASONE SOD PHOS INJ 4 MG/ML SDV ONE; +FAMOTIDINE 20 MG/2 ML VIAL IV ONE; +FENTANYL CITRATE/PF 100MCG/2 ML INJ ONE; +LIDOCAINE HCL 2% LOCAL 20 ML VIAL ONE; +MIDAZOLAM HCL 2 MG/2 ML VIAL ONE; +NEOMYCIN/POLYMYX/BACITR OINT 0.9 GM PKT ONE; +ONDANSETRON HCL INJ 2MG/ML 2ML 2 MG/ML VIAL ONE; +POVIDONE IODINE 0.05% 0.05 % ML PO ONE; +PROPOFOL IV EMULSION 10 MG/ML 20 ML VIAL ONE; -ROPIVACAINE 246.25 MG, EPINEPHRINE HCL 1:1000 1ML 0.5 MG, CLONIDINE HCL 0.08 MG, KETORO... INJ ONE
[2021-09-23 13:00] VITALS: BP 126/66
== END | disposition home or self-care (01) ==
LOC: OR 09:51
PROVIDERS: ATTEND Podiatrist Foot Surgery
DX: M20.41 Other hammer toe(s) (acquired), right foot (principal); M79.671 Pain in right foot; Z01.810 Encounter for preprocedural cardiovascular examination; Z01.812 Encounter for preprocedural laboratory examination; Z01.818 Encounter for other preprocedural examination; Z20.822 Contact with and (suspected) exposure to COVID-19; E66.9 Obesity, unspecified; Z68.30 Body mass index [BMI] 30.0-30.9, adult; G62.9 Polyneuropathy, unspecified; E78.5 Hyperlipidemia, unspecified; J45.909 Unspecified asthma, uncomplicated
CPT/HCPCS: 0223U; 28285 ×4; 28308; 36415; 71046; 76000; 80048; 85025; 93005; C1713; J0690; J1100; J2001; J2250; J2405; J2704; J3010